=== PATIENT | female | born 1960 ===

== ENCOUNTER 2019-04-23 07:41 | Day surgery (SDC) | payer OTHER ==
[~2019-04-23 07:41] MED LIST: CYCL10 PO; OXYACE5T PO; PRED20 PO
== END 2019-04-23 22:46 | disposition home or self-care (01) ==
LOC: MOI US 07:41 → MOI MAM 08:00 → MOI US 22:46
DX: N63.42 Unspecified lump in left breast, subareolar (principal)
CPT/HCPCS: 19083; 77065; 88305; A4648

== ENCOUNTER → 2021-01-14 | Outpatient (CLI) | payer OTHER ==
[2021-01-15 15:11] LABS: HPV 16 Negative (Negative); HPV 18 Negative (Negative); HPV OTHER HR TYPES Negative (Negative)
== END ==
LOC: LAB 11:57 → LAB SHORT 11:57
PROVIDERS: Obstetrics & Gynecology
DX: Z01.419 Encounter for gynecological examination (general) (routine) without abnormal findings (principal); Z88.0 Allergy status to penicillin
CPT/HCPCS: 87624; G0123

== ENCOUNTER 2021-12-15 06:48 | Day surgery (SDC) | payer BC ==
[~2021-12-15] VITALS: Ht 172.7 cm; Wt 116.2 kg
[~2021-12-15 06:48] MED LIST changes: +METF500 PO
--- NOTE | 2021-12-15 07:37 | NUR ---
AMBULATED INTO [facility] FOR RIGHT KNEE SURGERY TODAY REVIEWED HISTORY AND PHYSCIAL AND REVIEW MEDS/ALLERGIES AT BEDSIDE TODAY
--- NOTE | 2021-12-15 11:26 | NUR ---
PATIENT CAME BACK FROM PACU TODAY 12/15/21 AT 1055. POD 0 RIGHT TKA MINDA IS A&OX4. VS ARE WNL AND IS ON RA. PATIENT DENIES PAIN DUE TO SPINAL SHE HAD DURING PROCEDURE. SHE CAN FEEL THE TOPS OF HER KNEES AT THIS TIME. PATIENT CAN MOVE HER LEGS BUT CAN'T WIGGLE HER TOES. RIGHT KNEE HAS JUANITO WRAP THAT IS C/D/I. POLAR PACK IS IN PLACE. SHE IS TOLERATING SMALL AMOUNTS OF PO INTAKE. FAMILY IS AT BEDSIDE. PATIENT IS LAYING IN BED. CALL LIGHT WITHIN REACH.
[2021-12-15] MEDS ORDERED: ASPI81CH PO (13:07)
[2021-12-15] MEDS ORDERED: Percocet 5-3251 EACH PO (13:08)
--- NOTE | 2021-12-15 15:57 | NUR ---
SHIFT SUMMARY: POD 0 RIGHT TKA PATIENT IS A&OX4. VS ARE WNL AND IS ON RA. PATIENT HAD A SPINAL DURING PROCEDURE AND STILL HAS NUMBNESS ON THE BOTTOM OF HER FEET BUT STATED "IT IS GETTING BETTER!". DENIES PAIN BUT IS TAKING THE SCHEDULED TYLENOL AND TORADOL. PATIENT CAN WIGGLE HER TOES WHEN ASKED. TOLERATING PO INTAKE AND IS VOIDING. RIGHT KNEE HAS JUANITO WRAP THAT IS C/D/I. POLAR PACK IN PLACE. SBA TO THE CHAIR WITH FWW AND GAIT BELT. CALLS APPROPRIATELY. CALL LIGHT WITHIN REACH. THE PLAN IS TO WORK WITH PHYSICAL THERAPY AGAIN TOMORROW WHEN SHE ISN'T NUMB IN HER LEGS AND TO CONTINUE PAIN MANAGEMENT. WILL PROBABLY DISCHARGE TOMORROW IF APPROPRIATE.
--- NOTE | 2021-12-16 04:06 | NUR ---
SHIFT SUMMARY NO ACUTE CHANGES THIS SHIFT. PT RESTED WELL T/O NIGHT. JUANITO WRAP TO R KNEE REMAINS CDI WITH POLAR PACK IN PLACE. UP WITH 1 SBA USING FWW + GB TO BATHROOM. TYLENOL/TORADOL FOR PAIN MANAGEMENT. IV SL. AMBIKA ADA DIET. PLANNING TO DC HOME TODAY AFTER THERAPIES. USES CALL LIGHT APPROPRIATELY.
[2021-12-16 06:07] LABS: BASOPHILS ABSOLUTE AUTO 0.01 K/mm3 (0.00-0.23); BASOPHILS PERCENT AUTO 0 % (0-2); EOSINOPHILS ABSOLUTE AUTO 0.05 K/mm3 (0.00-0.68); EOSINOPHILS PERCENT AUTO 1 % (0-6); Hematocrit 31.9 % (33.0-51.0); Hemoglobin 10.5 g/dL (11.5-16.0); IMMATURE GRAN ABSOLUTE AUTO 0.02 K/mm3 (0.00-0.10); IMMATURE GRAN PERCENT AUTO 0 % (0-1); LYMPHOCYTES ABSOLUTE AUTO 1.67 K/mm3 (0.84-5.20); LYMPHOCYTES PERCENT AUTO 16 % (21-46); MONOCYTES ABSOLUTE AUTO 0.97 K/mm3 (0.16-1.47); MONOCYTES PERCENT AUTO 9 % (4-13); Mean Corpuscular HGB 27.2 pg (26.0-34.0); Mean Corpuscular HGB Conc 32.9 g/dL (31.5-36.5); Mean Corpuscular Volume 83 fL (80-100); Mean Platelet Volume 9.8 fL (9.1-12.4); NEUTROPHILS PERCENT AUTO 74 % (41-73); Platelet Count 260 K/mm3 (150-400); RDW Coefficient Variation 12.4 % (11.7-14.2); RDW Standard Deviation 37.2 fL (35.1-46.3); Red Blood Cell Count 3.86 M/mm3 (3.80-5.20); White Blood Cell Count 10.42 K/mm3 (4.00-11.30)
[2021-12-16 06:26] LABS: Bun/Creatinine Ratio 24.3 (12.0-20.0); Calcium, Blood 8.6 mg/dL (8.5-10.1); Creatinine, Blood 0.66 mg/dL (0.40-1.00); Potassium, Blood 4.2 mmol/L (3.5-5.5)
--- NOTE | 2021-12-16 10:00 | NUR ---
DISCHARGE NOTE: PATIENT AND PATIENTS DAUGHTER WERE EDUCATED ON DISCHARGE INSTRUCTIONS. BOTH VERBALIZED UNDERSTANDING OF INSTRUCTIONS. HER DAUGHTER WAS GIVEN THE HARD PERSCRIPTIONS YESTERDAY AND HAS THE MEDICATIONS WAITING FOR THE PATIENT AT HOME. IV WAS TAKEN OUT AND WNL. PAIN IS MANAGED WITH PO PAIN MEDICATION. RIGHT KNEE HAS JUANITO WRAP AND AQUACEL THAT IS C/D/I. DENIES NUMBNESS AND TINGLING. SHE IS A SBA WITH FWW AND GAIT BELT. SHE IS TOLERATING PO INTAKE AND IS VOIDING. PATIENT IS DRESSED AND HAS PERSONAL ITEMS GATHERED. PATIENT WAS WHEELCHAIRED OUT TO HER DAUGHTERS CAR TO BE TAKEN HOME.
== END 2021-12-16 09:57 | disposition home or self-care (01) ==
LOC: ORSCMMR 06:48 → SURS 10:42 → ORSCMMR 12-16 09:57
PROVIDERS: Orthopaedic Surgery
PROC: 0SRC0JA Replacement of Right Knee Joint with Synthetic Substitute, Uncemented, Open Approach (ICD-10-PCS; principal; 2021-12-15 08:15)
DX: M17.0 Bilateral primary osteoarthritis of knee (principal); E11.9 Type 2 diabetes mellitus without complications; Z79.84 Long term (current) use of oral hypoglycemic drugs; E66.9 Obesity, unspecified; Z68.39 Body mass index [BMI] 39.0-39.9, adult
CPT/HCPCS: 36415; 73560-RT; 80048; 82947; 85025; 97110; 97161; 97530; A9270; C1776; J0171; J0690; J0735; J1100; J1815; J1885; J2250; J2405; J2704; J2795; J3010; J7120

== ENCOUNTER → 2023-06-30 | Outpatient (CLI) | payer OTHER ==
[~2023-06-30] MED LIST changes: +ASPI81CH PO; +Percocet 5-3251 EACH PO
[2023-06-30 09:18] LABS: BASOPHILS ABSOLUTE AUTO 0.02 K/mm3 (0.00-0.23); BASOPHILS PERCENT AUTO 0 % (0-2); EOSINOPHILS ABSOLUTE AUTO 0.16 K/mm3 (0.00-0.68); EOSINOPHILS PERCENT AUTO 3 % (0-6); Hematocrit 41.2 % (33.0-51.0); Hemoglobin 13.5 g/dL (11.5-16.0); IMMATURE GRAN ABSOLUTE AUTO 0.02 K/mm3 (0.00-0.10); IMMATURE GRAN PERCENT AUTO 0 % (0-1); LYMPHOCYTES ABSOLUTE AUTO 1.74 K/mm3 (0.84-5.20); LYMPHOCYTES PERCENT AUTO 28 % (21-46); MONOCYTES ABSOLUTE AUTO 0.41 K/mm3 (0.16-1.47); MONOCYTES PERCENT AUTO 7 % (4-13); Mean Corpuscular HGB 26.7 pg (26.0-34.0); Mean Corpuscular HGB Conc 32.8 g/dL (31.5-36.5); Mean Corpuscular Volume 81 fL (80-100); Mean Platelet Volume 9.4 fL (9.1-12.4); NEUTROPHILS ABSOLUTE AUTO 3.97 K/mm3 (1.96-9.15); NEUTROPHILS PERCENT AUTO 63 % (41-73); Platelet Count 327 K/mm3 (150-400); RDW Coefficient Variation 12.6 % (11.7-14.2); Red Blood Cell Count 5.06 M/mm3 (3.80-5.20); White Blood Cell Count 6.32 K/mm3 (4.00-11.30)
[2023-06-30 09:36] LABS: Albumin, Blood 3.4 g/dL (3.4-5.0); Albumin/Globulin Ratio 0.9 (0.8-1.8); Bilirubin, Total 0.3 mg/dL (0.1-1.0); Calcium, Blood 8.9 mg/dL (8.5-10.1); Creatinine, Blood 0.86 mg/dL (0.40-1.00); Free Thyroxine 1.29 ng/dL (0.70-1.60); Globulin, Blood 3.8 g/dL (2.2-4.0); Potassium, Blood 3.9 mmol/L (3.5-5.5); Thyroid Stimulating Hormone 1.037 uIU/mL (0.360-4.800); Total Protein, Blood 7.2 g/dL (6.4-8.2)
== END | disposition home or self-care (01) ==
LOC: LAB 09:12 → LAB SHORT 09:12
PROVIDERS: Physician Assistant
DX: I48.91 Unspecified atrial fibrillation (principal)
CPT/HCPCS: 80053; 83735; 84439; 84443; 84484; 85025

== ENCOUNTER 2024-09-04 14:00 | Emergency (ER) | payer BC ==
[~2024-09-04] VITALS: Ht 172.7 cm; Wt 100.7 kg
[2024-09-04 14:30] VITALS: BP 167/73
[2024-09-04] MEDS ORDERED: Meclizine HCl 25 MG Tab PO ONE (15:20)
[2024-09-04] MEDS ORDERED: Lactated Ringer's 1,000 ML IV ONE (15:20)
[2024-09-04 15:43] LABS: Albumin/Globulin Ratio 1.2 (0.8-1.8); Bilirubin, Total 0.3 mg/dL (0.1-1.0); Bun/Creatinine Ratio 20.2 (12.0-20.0); Calcium, Blood 8.9 mg/dL (8.5-10.1); Creatinine, Blood 0.84 mg/dL (0.40-1.00); Globulin, Blood 3.4 g/dL (2.2-4.0); Potassium, Blood 3.9 mmol/L (3.5-5.5); Total Protein, Blood 7.4 g/dL (6.4-8.2)
[2024-09-04 15:46] LABS: BASOPHILS ABSOLUTE AUTO 0.03 K/mm3 (0.00-0.23); BASOPHILS PERCENT AUTO 0 % (0-2); EOSINOPHILS PERCENT AUTO 2 % (0-6); Hematocrit 40.7 % (33.0-51.0); Hemoglobin 13.1 g/dL (11.5-16.0); IMMATURE GRAN ABSOLUTE AUTO 0.03 K/mm3 (0.00-0.10); IMMATURE GRAN PERCENT AUTO 0 % (0-1); LYMPHOCYTES ABSOLUTE AUTO 1.12 K/mm3 (0.84-5.20); LYMPHOCYTES PERCENT AUTO 17 % (21-46); MONOCYTES ABSOLUTE AUTO 0.33 K/mm3 (0.16-1.47); MONOCYTES PERCENT AUTO 5 % (4-13); Mean Corpuscular HGB 26.9 pg (26.0-34.0); Mean Corpuscular HGB Conc 32.2 g/dL (31.5-36.5); Mean Corpuscular Volume 84 fL (80-100); Mean Platelet Volume 9.8 fL (9.1-12.4); NEUTROPHILS ABSOLUTE AUTO 5.18 K/mm3 (1.96-9.15); NEUTROPHILS PERCENT AUTO 76 % (41-73); Platelet Count 296 K/mm3 (150-400); RDW Standard Deviation 39.7 fL (35.1-46.3); Red Blood Cell Count 4.87 M/mm3 (3.80-5.20); White Blood Cell Count 6.79 K/mm3 (4.00-11.30)
[2024-09-04] MEDS ORDERED: MECL25 PO (16:03)
== END 2024-09-04 16:08 | disposition home or self-care (01) ==
LOC: ER 14:00
PROVIDERS: Emergency Medicine
DX: R42 Dizziness and giddiness (principal); I48.91 Unspecified atrial fibrillation; Z79.01 Long term (current) use of anticoagulants; Z79.84 Long term (current) use of oral hypoglycemic drugs; Z79.82 Long term (current) use of aspirin
CPT/HCPCS: 70450; 80053; 85025; 93005; 93010; 99284-25